=== PATIENT | male | born 1955 | race Caucasian/White ===

== ENCOUNTER 2017-10-01 07:28 | Inpatient (IN) ==
[2017-10-01] MEDS ORDERED: Ondansetron 4 MG/2 ML VIAL IVP ONE (07:36)
[2017-10-01] MEDS ORDERED: 0.9 % Sodium Chloride 1,000 ML IVC ONE ×3 (07:37→09:22)
--- NOTE | 2017-10-01 07:47 | Emergency Department Note ---
Disposition Clinical Impression: Abdominal pain Qualifiers: Abdominal location: epigastric Qualified Code(s): R10.13 - Epigastric pain DKA (diabetic ketoacidoses) Qualifiers: Diabetes mellitus type: type 1 Qualified Code(s): E10.10 - Disposition: Admitted As Inpatient Condition: Good Abdominal Pain HPI - General Chief Complaint: ED Abdominal Pain Stated Complaint: abd pain Time Seen by Provider: 10/01/17 07:31 Source: patient, EMS Mode of arrival: ambulatory Limitations: no limitations Nursing Notes Reviewed: Yes Vital Signs Reviewed: Yes - History of Present Illness HPI Narrative: Patient presents today for evaluation of nausea, vomiting and upper epigastric pain. Patient has very significant past medical history of hereditary chronic pancreatitis with 3 surgeries performed by [facility]. Patient's last surgery was in 1994. Does not follow regularly. Patient does not have an admission for pancreatitis or abdominal pain since this time. Patient had surgery for cyst as well as duct reconstruction. The patient has a history of insulin-dependent diabetes. The patient has not been eating for the last several days secondary to the nausea vomiting and abdominal pain. Since she has not been eating he has not been taking his insulin. The patient arrives with significantly dry mucous membranes. Continuing to make urine. Mild epigastric pain. Patient will undergo further evaluation for possible DKA first pancreatitis. Pain Scale: 7 - Related Data Home Medications Medication Instructions Recorded Confirmed Insulin Regular Human [HumuLIN R] 30 unit SQ 1-2XD PRN 10/01/17 10/01/17 OxyCODONE/APAP 5/325 [Percocet 1 tab PO Q6HR PRN 10/01/17 10/01/17 5/325 MG] Allergies Allergy/AdvReac Type Severity Reaction Status Date / Time No Known Allergies Allergy Verified 10/01/17 09:54 Review of Systems: CONSTITUTIONAL: Weakness and fatigue No weight loss, fever, chills HEENT: Eyes: No visual changes. Ears, Nose, Throat: No hearing loss, difficulty talking or unable to swallow. SKIN: No rash or itching. CARDIOVASCULAR: No chest pain, chest pressure or chest discomfort. No palpitations or edema. RESPIRATORY: No shortness of breath, cough or sputum. GASTROINTESTINAL: Nausea, vomiting, abdominal pain. No diarrhea or constipation or blood in stool or vomit. GENITOURINARY: No burning on urination or hematuria. NEUROLOGICAL: No headache, dizziness, syncope, paralysis, ataxia, numbness or tingling in the extremities. No change in bowel or bladder control. MUSCULOSKELETAL: No muscle pain, back pain, joint pain or stiffness. Abdominal Pain PMH - Past Medical History Medical history: Reports: diabetes, other Male Surgical History: Reports: other Psychiatric history: Reports: no psych history - Social History Smoking status: Current every day smoker Physical Exam General: Mild distress secondary to dehydration and abdominal pain Head: Normocephalic Atraumatic Eyes: PERRL, EOMI ENT: Dry mucous membranes Airway patent, no stridor Neck: supple, no meningismus Chest: Lungs clear to auscultation bilateral Cardiac: Regular rate and rhythm, no murmurs, rubs or gallops Abdomen: Significant midline scar as well as paucity of it abdominal adipose. soft, nontender, nondistended; no guarding, rebound, or tenderness to percussion Musculoskeletal: Calves symmetric, nontender, no palpable cord Skin: No rash, normal skin tone Neuro: Alert and Oriented to person, place, and time; No focal deficit - General Limitations: no limitations General appearance: alert, in no apparent distress Course - Reevaluation(s) Reevaluation #1: Amylase and lipase normal. Blood sugar greater than 1000. Acidotic. Fluids been given. Insulin drip started. Patient admitted to the hospitalist service. - Consultations Consultation #1: Discussed with hospitalist. Patient accepted for admission. Vital Signs Temperature 97.9 F 10/01/17 07:29 Pulse Rate 109 10/01/17 07:29 Respiratory Rate 18 10/01/17 07:29 Blood Pressure 135/94 10/01/17 07:29 O2 Sat by Pulse Oximetry 99 10/01/17 07:29 Temperature 97.9 F 10/01/17 18:44 Pulse Rate 105 10/01/17 18:44 Respiratory Rate 17 10/01/17 18:44 Blood Pressure 99/78 10/01/17 18:44 O2 Sat by Pulse Oximetry 96 10/01/17 18:44 Oxygen Delivery Oxygen Delivery Room Air Abdominal Pain - Medical Records Medical records reviewed: Yes I reviewed the patient's medical records. - Lab Data Lab results reviewed: Yes I reviewed the patient's lab results. Result diagrams: 10/01/17 07:56 10/01/17 16:14 Lab Results 10/01/17 10/01/17 10/01/17 Range/Units 07:35 07:36 07:56 WBC 6.7 (4.3-11.1) K/mcL RBC 4.56 (4.19-5.50) M/mcL Hgb 14.3 (12.9-16.9) g/dL Hct 43.3 (37.5-50.1) % MCV 95.0 (83.0-100.0) fL MCH 31.4 (28.0-33.3) pg MCHC 33.0 (31.6-35.5) g/dL RDW 12.5 (11.5-14.5) % Plt Count 239 (140-400) K/mcL MPV 12.5 H (9.4-12.4) fL Immature Gran % 0.2 (0-4) % Seg Neutrophils % 83.9 % Lymphocytes % 11.3 % Monocytes % 3.9 % Eosinophils % 0.2 % Basophils % 0.5 % Neutrophils # 5.6 (1.6-8.9) K/mcL Lymphocytes # 0.8 (0.6-4.6) K/mcL Monocytes # 0.3 (0.0-1.3) K/mcL Eosinophils # 0.0 (0.0-0.6) K/mcL Basophils # 0.0 (0.0-0.2) K/mcL VBG pH (7.32-7.42) pH Units VBG pCO2 (41-51) mmHg VBG pO2 (25-50) mmHg VBG HCO3 (21-27) mEq/L Sodium (136-145) mEq/L Potassium (3.5-5.1) mEq/L Chloride (98-107) mEq/L Carbon Dioxide (23-29) mEq/L BUN (8-23) mg/dL Creatinine (0.70-1.30) mg/dL Est GFR ( Amer) (> 60) Est GFR (Non-Af Amer) (> 60) BUN/Creatinine Ratio (6-26) Glucose (70-105) mg/dL POC Glucose > 600 H* > 600 H* (58-89) Est Mean Plasma Glucose mg/dl Hemoglobin A1c ( - 5.6) % Calculated Osmolality (280-300) Lactic Acid (0.5-2.2) mmol/L Calcium (8.6-10.3) mg/dL Phosphorus (2.7-4.5) mg/dL Magnesium (1.6-2.6) mg/dL Total Bilirubin (0.3-1.0) mg/dL Direct Bilirubin (0.0-0.2) mg/dL Indirect Bilirubin (0.0-1.2) mg/dL AST (13-39) Units/L ALT (7-52) Units/L Alkaline Phosphatase (34-104) Units/L Serum Total Protein (6.4-8.9) g/dL Albumin (3.5-5.7) g/dL Globulin (2.4-3.5) g/dL Albumin/Globulin Ratio (1.1-2.2) Amylase (29-103) Units/L Lipase (11-82) Units/L Beta-Hydroxybutyric Acd (0.02-0.27) mmol/L Urine Color (Yellow) Urine Clarity (Clear) Urine pH (5.0-8.0) pH Units Ur Specific [place] (1.010-1.025) Urine Protein (Neg-Trace) mg/dL Urine Glucose (UA) (Normal) mg/dL Urine Ketones (Negative) mg/dL Urine Blood (Negative) Urine Nitrite (Negative) Urine Bilirubin (Negative) Urine Urobilinogen (Normal) mg/dL Ur Leukocyte Esterase (Negative) Ur Culture Indicated? (NO) Specimen Rejected 10/01/17 10/01/17 10/01/17 Range/Units 07:56 07:56 07:56 WBC (4.3-11.1) K/mcL RBC (4.19-5.50) M/mcL Hgb (12.9-16.9) g/dL Hct (37.5-50.1) % MCV (83.0-100.0) fL MCH (28.0-33.3) pg MCHC (31.6-35.5) g/dL RDW (11.5-14.5) % Plt Count (140-400) K/mcL MPV (9.4-12.4) fL Immature Gran % (0-4) % Seg Neutrophils % % Lymphocytes % % Monocytes % % Eosinophils % % Basophils % % Neutrophils # (1.6-8.9) K/mcL Lymphocytes # (0.6-4.6) K/mcL Monocytes # (0.0-1.3) K/mcL Eosinophils # (0.0-0.6) K/mcL Basophils # (0.0-0.2) K/mcL VBG pH (7.32-7.42) pH Units VBG pCO2 (41-51) mmHg VBG pO2 (25-50) mmHg VBG HCO3 (21-27) mEq/L Sodium (136-145) mEq/L Potassium (3.5-5.1) mEq/L Chloride (98-107) mEq/L Carbon Dioxide (23-29) mEq/L BUN (8-23) mg/dL Creatinine (0.70-1.30) mg/dL Est GFR ( Amer) (> 60) Est GFR (Non-Af Amer) (> 60) BUN/Creatinine Ratio (6-26) Glucose (70-105) mg/dL POC Glucose (58-89) Est Mean Plasma Glucose mg/dl Hemoglobin A1c ( - 5.6) % Calculated Osmolality (280-300) Lactic Acid 1.9 (0.5-2.2) mmol/L Calcium (8.6-10.3) mg/dL Phosphorus (2.7-4.5) mg/dL Magnesium (1.6-2.6) mg/dL Total Bilirubin (0.3-1.0) mg/dL Direct Bilirubin (0.0-0.2) mg/dL Indirect Bilirubin (0.0-1.2) mg/dL AST (13-39) Units/L ALT (7-52) Units/L Alkaline Phosphatase (34-104) Units/L Serum Total Protein (6.4-8.9) g/dL Albumin (3.5-5.7) g/dL Globulin (2.4-3.5) g/dL Albumin/Globulin Ratio (1.1-2.2) Amylase (29-103) Units/L Lipase (11-82) Units/L Beta-Hydroxybutyric Acd > 2.00 H (0.02-0.27) mmol/L Urine Color (Yellow) Urine Clarity (Clear) Urine pH (5.0-8.0) pH Units Ur Specific [place] (1.010-1.025) Urine Protein (Neg-Trace) mg/dL Urine Glucose (UA) (Normal) mg/dL Urine Ketones (Negative) mg/dL Urine Blood (Negative) Urine Nitrite (Negative) Urine Bilirubin (Negative) Urine Urobilinogen (Normal) mg/dL Ur Leukocyte Esterase (Negative) Ur Culture Indicated? (NO) Specimen Rejected Contaminated 10/01/17 10/01/17 10/01/17 Range/Units 07:56 08:24 08:32 WBC (4.3-11.1) K/mcL RBC (4.19-5.50) M/mcL Hgb (12.9-16.9) g/dL Hct (37.5-50.1) % MCV (83.0-100.0) fL MCH (28.0-33.3) pg MCHC (31.6-35.5) g/dL RDW (11.5-14.5) % Plt Count (140-400) K/mcL MPV (9.4-12.4) fL Immature Gran % (0-4) % Seg Neutrophils % % Lymphocytes % % Monocytes % % Eosinophils % % Basophils % % Neutrophils # (1.6-8.9) K/mcL Lymphocytes # (0.6-4.6) K/mcL Monocytes # (0.0-1.3) K/mcL Eosinophils # (0.0-0.6) K/mcL Basophils # (0.0-0.2) K/mcL VBG pH 7.26 L (7.32-7.42) pH Units VBG pCO2 32 L (41-51) mmHg VBG pO2 62 H (25-50) mmHg VBG HCO3 15 L (21-27) mEq/L Sodium (136-145) mEq/L Potassium (3.5-5.1) mEq/L Chloride (98-107) mEq/L Carbon Dioxide (23-29) mEq/L BUN (8-23) mg/dL Creatinine (0.70-1.30) mg/dL Est GFR ( Amer) (> 60) Est GFR (Non-Af Amer) (> 60) BUN/Creatinine Ratio (6-26) Glucose (70-105) mg/dL POC Glucose (58-89) Est Mean Plasma Glucose 355 mg/dl Hemoglobin A1c 14.0 H ( - 5.6) % Calculated Osmolality (280-300) Lactic Acid (0.5-2.2) mmol/L Calcium (8.6-10.3) mg/dL Phosphorus (2.7-4.5) mg/dL Magnesium (1.6-2.6) mg/dL Total Bilirubin (0.3-1.0) mg/dL Direct Bilirubin (0.0-0.2) mg/dL Indirect Bilirubin (0.0-1.2) mg/dL AST (13-39) Units/L ALT (7-52) Units/L Alkaline Phosphatase (34-104) Units/L Serum Total Protein (6.4-8.9) g/dL Albumin (3.5-5.7) g/dL Globulin (2.4-3.5) g/dL Albumin/Globulin Ratio (1.1-2.2) Amylase (29-103) Units/L Lipase (11-82) Units/L Beta-Hydroxybutyric Acd (0.02-0.27) mmol/L Urine Color Yellow (Yellow) Urine Clarity Clear (Clear) Urine pH 5.5 (5.0-8.0) pH Units Ur Specific [place] > 1.030 H (1.010-1.025) Urine Protein Negative (Neg-Trace) mg/dL Urine Glucose (UA) >=1000 H (Normal) mg/dL Urine Ketones 40 H (Negative) mg/dL Urine Blood Negative (Negative) Urine Nitrite Negative (Negative) Urine Bilirubin Negative (Negative) Urine Urobilinogen Normal (Normal) mg/dL Ur Leukocyte Esterase Negative (Negative) Ur Culture Indicated? NO (NO) Specimen Rejected 10/01/17 10/01/17 10/01/17 Range/Units 09:09 10:47 10:48 WBC (4.3-11.1) K/mcL RBC (4.19-5.50) M/mcL Hgb (12.9-16.9) g/dL Hct (37.5-50.1) % MCV (83.0-100.0) fL MCH (28.0-33.3) pg MCHC (31.6-35.5) g/dL RDW (11.5-14.5) % Plt Count (140-400) K/mcL MPV (9.4-12.4) fL Immature Gran % (0-4) % Seg Neutrophils % % Lymphocytes % % Monocytes % % Eosinophils % % Basophils % % Neutrophils # (1.6-8.9) K/mcL Lymphocytes # (0.6-4.6) K/mcL Monocytes # (0.0-1.3) K/mcL Eosinophils # (0.0-0.6) K/mcL Basophils # (0.0-0.2) K/mcL VBG pH (7.32-7.42) pH Units VBG pCO2 (41-51) mmHg VBG pO2 (25-50) mmHg VBG HCO3 (21-27) mEq/L Sodium 129 L (136-145) mEq/L Potassium 6.6 H* (3.5-5.1) mEq/L Chloride 92 L (98-107) mEq/L Carbon Dioxide 15 L (23-29) mEq/L BUN 57 H (8-23) mg/dL Creatinine 1.56 H (0.70-1.30) mg/dL Est GFR ( Amer) 55 L (> 60) Est GFR (Non-Af Amer) 46 L (> 60) BUN/Creatinine Ratio 37 H (6-26) Glucose 1099 H* (70-105) mg/dL POC Glucose > 600 H* > 600 H* (58-89) Est Mean Plasma Glucose mg/dl Hemoglobin A1c ( - 5.6) % Calculated Osmolality 339 H (280-300) Lactic Acid (0.5-2.2) mmol/L Calcium 9.3 (8.6-10.3) mg/dL Phosphorus (2.7-4.5) mg/dL Magnesium (1.6-2.6) mg/dL Total Bilirubin 0.4 (0.3-1.0) mg/dL Direct Bilirubin 0.1 (0.0-0.2) mg/dL Indirect Bilirubin 0.3 (0.0-1.2) mg/dL AST 16 (13-39) Units/L ALT 22 (7-52) Units/L Alkaline Phosphatase 234 H (34-104) Units/L Serum Total Protein 7.1 (6.4-8.9) g/dL Albumin 4.2 (3.5-5.7) g/dL Globulin 2.9 (2.4-3.5) g/dL Albumin/Globulin Ratio 1.4 (1.1-2.2) Amylase < 10 L (29-103) Units/L Lipase 12 (11-82) Units/L Beta-Hydroxybutyric Acd (0.02-0.27) mmol/L Urine Color (Yellow) Urine Clarity (Clear) Urine pH (5.0-8.0) pH Units Ur Specific [place] (1.010-1.025) Urine Protein (Neg-Trace) mg/dL Urine Glucose (UA) (Normal) mg/dL Urine Ketones (Negative) mg/dL Urine Blood (Negative) Urine Nitrite (Negative) Urine Bilirubin (Negative) Urine Urobilinogen (Normal) mg/dL Ur Leukocyte Esterase (Negative) Ur Culture Indicated? (NO) Specimen Rejected 10/01/17 10/01/17 10/01/17 Range/Units 11:39 11:40 12:07 WBC (4.3-11.1) K/mcL RBC (4.19-5.50) M/mcL Hgb (12.9-16.9) g/dL Hct (37.5-50.1) % MCV (83.0-100.0) fL MCH (28.0-33.3) pg MCHC (31.6-35.5) g/dL RDW (11.5-14.5) % Plt Count (140-400) K/mcL MPV (9.4-12.4) fL Immature Gran % (0-4) % Seg Neutrophils % % Lymphocytes % % Monocytes % % Eosinophils % % Basophils % % Neutrophils # (1.6-8.9) K/mcL Lymphocytes # (0.6-4.6) K/mcL Monocytes # (0.0-1.3) K/mcL Eosinophils # (0.0-0.6) K/mcL Basophils # (0.0-0.2) K/mcL VBG pH (7.32-7.42) pH Units VBG pCO2 (41-51) mmHg VBG pO2 (25-50) mmHg VBG HCO3 (21-27) mEq/L Sodium 139 D (136-145) mEq/L Potassium 4.7 D (3.5-5.1) mEq/L Chloride 102 (98-107) mEq/L Carbon Dioxide 19 L (23-29) mEq/L BUN 55 H (8-23) mg/dL Creatinine 1.54 H (0.70-1.30) mg/dL Est GFR ( Amer) 56 L (> 60) Est GFR (Non-Af Amer) 46 L (> 60) BUN/Creatinine Ratio 36 H (6-26) Glucose 747 H* (70-105) mg/dL POC Glucose > 600 H* > 600 H* (58-89) Est Mean Plasma Glucose mg/dl Hemoglobin A1c ( - 5.6) % Calculated Osmolality 339 H (280-300) Lactic Acid (0.5-2.2) mmol/L Calcium 9.9 (8.6-10.3) mg/dL Phosphorus 4.7 H (2.7-4.5) mg/dL Magnesium 3.5 H (1.6-2.6) mg/dL Total Bilirubin (0.3-1.0) mg/dL Direct Bilirubin (0.0-0.2) mg/dL Indirect Bilirubin (0.0-1.2) mg/dL AST (13-39) Units/L ALT (7-52) Units/L Alkaline Phosphatase (34-104) Units/L Serum Total Protein (6.4-8.9) g/dL Albumin (3.5-5.7) g/dL Globulin (2.4-3.5) g/dL Albumin/Globulin Ratio (1.1-2.2) Amylase (29-103) Units/L Lipase (11-82) Units/L Beta-Hydroxybutyric Acd (0.02-0.27) mmol/L Urine Color (Yellow) Urine Clarity (Clear) Urine pH (5.0-8.0) pH Units Ur Specific [place] (1.010-1.025) Urine Protein (Neg-Trace) mg/dL Urine Glucose (UA) (Normal) mg/dL Urine Ketones (Negative) mg/dL Urine Blood (Negative) Urine Nitrite (Negative) Urine Bilirubin (Negative) Urine Urobilinogen (Normal) mg/dL Ur Leukocyte Esterase (Negative) Ur Culture Indicated? (NO) Specimen Rejected 10/01/17 10/01/17 Range/Units 12:42 12:43 WBC (4.3-11.1) K/mcL RBC (4.19-5.50) M/mcL Hgb (12.9-16.9) g/dL Hct (37.5-50.1) % MCV (83.0-100.0) fL MCH (28.0-33.3) pg MCHC (31.6-35.5) g/dL RDW (11.5-14.5) % Plt Count (140-400) K/mcL MPV (9.4-12.4) fL Immature Gran % (0-4) % Seg Neutrophils % % Lymphocytes % % Monocytes % % Eosinophils % % Basophils % % Neutrophils # (1.6-8.9) K/mcL Lymphocytes # (0.6-4.6) K/mcL Monocytes # (0.0-1.3) K/mcL Eosinophils # (0.0-0.6) K/mcL Basophils # (0.0-0.2) K/mcL VBG pH (7.32-7.42) pH Units VBG pCO2 (41-51) mmHg VBG pO2 (25-50) mmHg VBG HCO3 (21-27) mEq/L Sodium (136-145) mEq/L Potassium (3.5-5.1) mEq/L Chloride (98-107) mEq/L Carbon Dioxide (23-29) mEq/L BUN (8-23) mg/dL Creatinine (0.70-1.30) mg/dL Est GFR ( Amer) (> 60) Est GFR (Non-Af Amer) (> 60) BUN/Creatinine Ratio (6-26) Glucose (70-105) mg/dL POC Glucose > 600 H* > 600 H* (58-89) Est Mean Plasma Glucose mg/dl Hemoglobin A1c ( - 5.6) % Calculated Osmolality (280-300) Lactic Acid (0.5-2.2) mmol/L Calcium (8.6-10.3) mg/dL Phosphorus (2.7-4.5) mg/dL Magnesium (1.6-2.6) mg/dL Total Bilirubin (0.3-1.0) mg/dL Direct Bilirubin (0.0-0.2) mg/dL Indirect Bilirubin (0.0-1.2) mg/dL AST (13-39) Units/L ALT (7-52) Units/L Alkaline Phosphatase (34-104) Units/L Serum Total Protein (6.4-8.9) g/dL Albumin (3.5-5.7) g/dL Globulin (2.4-3.5) g/dL Albumin/Globulin Ratio (1.1-2.2) Amylase (29-103) Units/L Lipase (11-82) Units/L Beta-Hydroxybutyric Acd (0.02-0.27) mmol/L Urine Color (Yellow) Urine Clarity (Clear) Urine pH (5.0-8.0) pH Units Ur Specific [place] (1.010-1.025) Urine Protein (Neg-Trace) mg/dL Urine Glucose (UA) (Normal) mg/dL Urine Ketones (Negative) mg/dL Urine Blood (Negative) Urine Nitrite (Negative) Urine Bilirubin (Negative) Urine Urobilinogen (Normal) mg/dL Ur Leukocyte Esterase (Negative) Ur Culture Indicated? (NO) Specimen Rejected - Radiology Data Radiology results reviewed: Yes I reviewed the patient's radiology results. - EKG Data EKG attestation: Yes I reviewed and interpreted this EKG. EKG results narrative: EKG shows sinus tachycardia at a rate of 105. VT 144. QRS 112. QTC 413. Patient has no significant ST elevations or depressions. Attestation Statement - Attestation Attestation: I examined this patient and my medical decision-making was reviewed with the Resident Physician. I agree with the documented findings, disposition and treatment plan as described except to the extent set forth below. Patient presents to the ED with a chief complaint of not feeling well. He states that he went to work today and felt the worst is ever found his life. He has history of chronic pancreatitis. He has had prior surgeries for pseudocysts. He states his blood sugar was high. He has not taken his insulin because he has not been able to eat for the past few days. On examination he is dehydrated. Epigastric tenderness. Dry mucous membranes. Plan. Labs IV hydration. DKA workup. Likely admission. 40 minutes of critical care exclusive of separately billable procedures.
[2017-10-01] MEDS ORDERED: *HR* FentaNYL (PF) 100 MCG/2 ML VIAL IVP ONE (08:10)
[2017-10-01] MEDS ORDERED: *HR* OxyCODONE Immed Rel 5 MG TABLET PO ONE (08:11)
[2017-10-01 08:24] LABS: Basophils % 0.5 %; Eosinophils % 0.2 %; Hematocrit 43.3 % (37.5-50.1); Hemoglobin 14.3 g/dL (12.9-16.9); Immature Granulocytes % 0.2 % (0-4); Lymphocytes # 0.8 K/mcL (0.6-4.6); Lymphocytes % 11.3 %; Mean Corpuscular Hemoglobin 31.4 pg (28.0-33.3); Mean Platelet Volume 12.5 fL (9.4-12.4); Monocytes # 0.3 K/mcL (0.0-1.3); Monocytes % 3.9 %; Neutrophils # 5.6 K/mcL (1.6-8.9); Platelet Count 239 K/mcL (140-400); Red Blood Count 4.56 M/mcL (4.19-5.50); Red Cell Distribution Width 12.5 % (11.5-14.5); Segmented Neutrophils % 83.9 %
[2017-10-01 08:36] LABS: VBG HCO3 15 mEq/L (21-27); VBG PCO2 32 mmHg (41-51); VBG PH 7.26 pH Units (7.32-7.42); VBG PO2 62 mmHg (25-50)
[2017-10-01 08:40] LABS: Bilirubin,Urine Negative (Negative); Blood,Urine Negative (Negative); Clarity,Urine Clear (Clear); Color,Urine Yellow (Yellow); Glucose,Urine (UA) >=1000 mg/dL (Normal); Ketones,Urine 40 mg/dL (Negative); Leukocyte Esterase,Urine Negative (Negative); Nitrite,Urine Negative (Negative); PH,Urine 5.5 pH Units (5.0-8.0); Protein,Urine Negative (Neg-Trace); Specific Gravity,Urine > 1.030 (1.010-1.025); Urobilinogen,Urine Normal (Normal)
[2017-10-01 09:53] LABS: Alanine Aminotransferase 22 Units/L (7-52); Albumin 4.2 g/dL (3.5-5.7); Albumin/Globulin Ratio 1.4 (1.1-2.2); Alkaline Phosphatase 234 Units/L (34-104); Amylase < 10 Units/L (29-103); Aspartate Amino Transferase 16 Units/L (13-39); BUN/Creatinine Ratio 37 (6-26); Bilirubin,Direct 0.1 mg/dL (0.0-0.2); Bilirubin,Indirect 0.3 mg/dL (0.0-1.2); Bilirubin,Total 0.4 mg/dL (0.3-1.0); Blood Urea Nitrogen 57 mg/dL (8-23); Calcium 9.3 mg/dL (8.6-10.3); Carbon Dioxide 15 mEq/L (23-29); Chloride 92 mEq/L (98-107); Globulin 2.9 g/dL (2.4-3.5); Sodium 129 mEq/L (136-145); Total Protein 7.1 g/dL (6.4-8.9); eGFR For African Americans 55 (> 60); eGFR For Non-African Americans 46 (> 60)
[2017-10-01] MEDS ORDERED: *HR* Dextrose 50 % in Water (Syg) 50 ML SYRINGE IVP PRN ×3 (09:54→18:10)
[2017-10-01] MEDS ORDERED: Insulin Human Regular 100 UNIT in 0.9 % Sodium Chloride 100 ML IVC SCH (10:00)
[2017-10-01] MEDS ORDERED: Insulin Regular, Human 100 UNIT/ML IV PRN (10:29)
[2017-10-01] MEDS ORDERED: Naloxone 0.4 MG/ML INJ IVP PRN (10:43)
[2017-10-01] MEDS ORDERED: Acetaminophen 325 MG TABLET PO PRN (10:43)
[2017-10-01] MEDS ORDERED: 0.9 % Sodium Chloride 1,000 ML IVC SCH (10:45)
[2017-10-01 10:54] LABS: Glucose 1099 mg/dL (70-105); Lipase 12 Units/L (11-82); Osmolality,Calculated 339 (280-300)
[2017-10-01 11:02] LABS: Potassium 6.6 mEq/L (3.5-5.1)
[2017-10-01] MEDS ORDERED: *HR* FentaNYL (PF) 100 MCG/2 ML VIAL IVP PRN (12:23)
[2017-10-01] MEDS ORDERED: *HR* FentaNYL (PF) 100 MCG/2 ML VIAL ONE (12:28)
--- NOTE | 2017-10-01 12:28 | Internal Med History&Physical ---
Date of Encounter: 10/01/17 Time of Encounter: 10:45 Assessment and Plan (1) DKA (diabetic ketoacidoses) Current visit: Yes Status: Acute Will admit the pt into Tele Pt is in severe DKA.. High risk pt.. Need very close monitoring in step down unit Reviewed his labs - AG-22, Hco3-15, severe hyperglycemia with BS @ 1099 started him on DKA protocol - Insulin gtt IV fluids - already given 3 lit NS bolus in the ER Next 4th bag run at 500cc/hr x 1 After that continue maintainence IVF NS @ 150cc/hr adjust IV fluids according his electrolytes check frequent electrolytes Q4hr Strict NPO for now Cont symptomatic and supportive with IV analgesics and IV Zofran Qualifiers: Diabetes mellitus type: type 1 Qualified Code(s): E10.10 - Type 1 diabetes mellitus with ketoacidosis without coma (2) Intractable nausea and vomiting Current visit: Yes Status: Acute Qualifiers: Vomiting type: unspecified Qualified Code(s): R11.2 - Nausea with vomiting , unspecified (3) Abdominal pain Current visit: Yes Status: Acute Qualifiers: Abdominal location: epigastric Qualified Code(s): R10.13 - Epigastric pain (4) Diabetes mellitus Current visit: Yes Status: Acute uncontrolled DM1 HbA1C 14 Counseled about compliance with Insulin educated him about sick day rule will consult content coordinator for further education about diet Qualifiers: Diabetes mellitus type: type 1 Diabetes mellitus complication status: with ketoacidosis Diabetes mellitus complication detail: without coma Qualified Code(s): E10.10 - Type 1 diabetes mellitus with ketoacidosis without coma (5) Chronic pancreatitis Current visit: Yes Status: Acute recurrent and chronic pancreatitis normal lipase if his abd pain persists even after DKA improves, will consider a CT of Abd Did not notice any pancreatic enzyme supplements in his home med list will check with PCP Qualifiers: Pancreatitis type: idiopathic Qualified Code(s): K86.1 - Other chronic pancreatitis (6) Tobacco dependence Current visit: Yes Status: Acute counseled to quit smoking tobacco as well as Marijuana on nicotine patch here Internal Medicine - H&P: HPI Chief complaint: Severe abdominal pain .. N / V Admitted From: Emergency Dept Plans for Post Hospital Care: Home History of present illness: Mr. Cardoza is a 62 year old male with known past medical history of chronic pancreatitis, type I diabetes on insulin, HTN , chronic tobacco dependence and marijuana usage occasionally, patient presents to ER for evaluation of nausea, vomiting and upper epigastric pain. Patient has very significant past medical history of hereditary chronic pancreatitis with 3 surgeries performed by [facility]. Patient's last surgery was in 1994. Does not follow regularly. Patient does not have an admission for pancreatitis or abdominal pain since this time. Patient had surgery for cyst as well as duct reconstruction. He has not been eating for the last several days secondary to the nausea vomiting and abdominal pain. Since she has not been eating he has not been taking his insulin almost for a week. Denied any CP / SOB. Denied any dysuria / Constipation / Diarrhea. Past Med Surg Social Fam HX - Past Medical History Medical history: diabetes, other (Chronic pancreatitis) Psychiatric history: no psych history - Social History Smoking Status: Current every day smoker Drug use: marijuana - Family History Mother Hx Family GI Disorders: Yes (Pancreatic cancer) Hx Family Endocrine Disorder: Yes (Diabetes type II) Internal Medicine - H&P: Meds Insulin Regular Human [HumuLIN R] 30 unit SQ 1-2XD PRN 10/01/17 [History] OxyCODONE/APAP 5/325 [Percocet 5/325 MG] 1 tab PO Q6HR PRN 10/01/17 [History] 3 Allergy/AdvReac Type Severity Reaction Status Date / Time No Known Allergies Allergy Verified 10/01/17 09:54 All Systems PM: A 10-system review of systems was performed and is negative for pertinent findings except as documented above in the HPI. Review of systems: All the systems are reviewed everything is benign except the systems and symptoms I mentioned in the history of present illness - Constitutional Vitals: Temp Pulse Resp BP Pulse Ox 97.9 F 98 16 108/81 98 10/01/17 07:29 10/01/17 11:06 10/01/17 11:06 10/01/17 11:06 10/01/17 11:06 General appearance: Present: A&O X 3 - Head Head exam: Present: atraumatic, normal inspection - Neck Neck exam general surgery: Present: supple - Respiratory Respiratory exam: Present: decreased breath sounds. Absent: rales, respiratory distress, rhonchi, wheezes - Cardiovascular Cardiovascular exam: Present: +S1, +S2, tachycardia. Absent: systolic murmur - GI/Abdominal GI/Abdominal exam: Present: normal bowel sounds, soft, tenderness (eleazar umbilical and epigastric region). Absent: distended, rebound, rigid - Extremities Exam Extremities exam: Absent: calf tenderness, pedal edema, tenderness - Back Exam Back exam: Absent: CVA tenderness (L), CVA tenderness (R) - Neurological Exam Neurological exam: Present: alert, oriented X3 - Psychiatric Psychiatric exam: Present: depressed - Skin Skin exam: Absent: rash Internal Med - H&P Results - Labs CBC & Chem 7: 10/01/17 07:56 10/01/17 09:09 Labs: Short CBC 10/01/17 Range/Units 07:56 WBC 6.7 (4.3-11.1) K/mcL Hgb 14.3 (12.9-16.9) g/dL Hct 43.3 (37.5-50.1) % Plt Count 239 (140-400) K/mcL Neutrophils # 5.6 (1.6-8.9) K/mcL BMP 10/01/17 09:09 Sodium 129 L Potassium 6.6 H* Chloride 92 L Carbon Dioxide 15 L BUN 57 H Creatinine 1.56 H Glucose 1099 H* Calcium 9.3 Liver Function 10/01/17 Range/Units 09:09 Total Bilirubin 0.4 (0.3-1.0) mg/dL Direct Bilirubin 0.1 (0.0-0.2) mg/dL AST 16 (13-39) Units/L ALT 22 (7-52) Units/L Alkaline Phosphatase 234 H (34-104) Units/L Albumin 4.2 (3.5-5.7) g/dL Urine 10/01/17 Range/Units 08:24 Urine Color Yellow (Yellow) Urine Clarity Clear (Clear) Urine pH 5.5 (5.0-8.0) pH Units Ur Specific [place] > 1.030 H (1.010-1.025) Urine Protein Negative (Neg-Trace) mg/dL Urine Glucose (UA) >=1000 H (Normal) mg/dL - ABG Interpretation ABG results: 10/01/17 08:32 VBG pH 7.26 L VBG pCO2 32 L VBG pO2 62 H VBG HCO3 15 L
[2017-10-01 13:09] LABS: Calcium 9.9 mg/dL (8.6-10.3); Magnesium 3.5 mg/dL (1.6-2.6); Phosphorous 4.7 mg/dL (2.7-4.5); Potassium 4.7 mEq/L (3.5-5.1)
[2017-10-01] MEDS ORDERED: Ondansetron 4 MG/2 ML VIAL IVP PRN (15:03)
[2017-10-01] MEDS ORDERED: *HR* Promethazine 25 MG/ML VIAL IVP PRN (15:04)
[2017-10-01] MEDS: 0.45 % Sodium Chloride w/KCl 20 MEQ/1,000 ML MLS IVC SCH ×3 (15:26→22:32)
[2017-10-01] MEDS ORDERED: Ketorolac 15 MG/ML VIAL IVP PRN (15:41)
[2017-10-01] MEDS: *HR* HYDROcodone/Acet 5/325 mg TABLET PO PRN ×2 (15:47→23:32)
--- NOTE | 2017-10-01 16:08 | Electrocardiograph Report ---
[employer] [employer] Test Date: 2017-10-01 Pat Name: Tyshawn Cardoza Department: 103 Room: 2N02 Gender: M Pipeline Operator: YOVANNY : 1955 Requested By: Kim See Order Number: [id number] Reading MD: Arvind Mitchell DO Measurements Intervals [place] Rate: 105 P: 76 MS: 144 QRS: -75 QRSD: 112 T: 71 QT: 352 QTc: 413 Interpretive Statements SINUS TACHYCARDIA INDETERMINATE AXIS PATTERN CONSISTENT WITH PULMONARY DISEASE INCOMPLETE RIGHT BUNDLE BRANCH BLOCK [90+ ms QRS DURATION, TERMINAL R IN V1/V2, 40+ ms S IN I/aVL/V4/V5/V6] POSSIBLE INFERIOR MYOCARDIAL INFARCTION [30 ms Q WAVE IN II/aVF], PROBABLY OLD Electronically Signed On 10-01-2017 16:07:06 EST by Arvind Mitchell DO
[2017-10-01] MEDS: Nicotine 21 MG PATCH.TD24 TD SCH (16:52)
[2017-10-01] MEDS: *HR* Heparin 5,000 UNIT/ML VIAL SQ SCH (16:53)
[2017-10-01 17:20] LABS: BUN/Creatinine Ratio 38 (6-26); Blood Urea Nitrogen 50 mg/dL (8-23); Calcium 10.5 mg/dL (8.6-10.3); Carbon Dioxide 29 mEq/L (23-29); Chloride 108 mEq/L (98-107); Glucose 310 mg/dL (70-105); Osmolality,Calculated 325 (280-300); Potassium 4.1 mEq/L (3.5-5.1); Sodium 145 mEq/L (136-145); eGFR For African Americans > 60 (> 60); eGFR For Non-African Americans 55 (> 60)
--- NOTE | 2017-10-01 18:09 | Event Note ---
Date of Encounter: 10/01/17 Time of Encounter: 18:08 Pt's anion gap improved and his BS came down to 250's. Pt also feeling lot better now. So will start him on clear liquid diet . Also will give him Levemir + ISS Q4hr medium scale will cont IV fluids as well as frequent labs till morning
[2017-10-01] MEDS ORDERED: Dextrose Gel 15 GM/37.5 ML TUBE PO PRN ×2 (18:10)
[2017-10-01] MEDS ORDERED: D5% in Water 1,000 ML IVC PRN (18:10)
[2017-10-01] MEDS: Insulin DETEMIR 100 UNIT/ML X5UNITS SQ SCH ×2 (19:55→22:31)
[2017-10-01 20:19] LABS: BUN/Creatinine Ratio 39 (6-26); Blood Urea Nitrogen 46 mg/dL (8-23); Calcium 10.1 mg/dL (8.6-10.3); Carbon Dioxide 27 mEq/L (23-29); Chloride 110 mEq/L (98-107); Glucose 107 mg/dL (70-105); Osmolality,Calculated 312 (280-300); Phosphorous 2.8 mg/dL (2.7-4.5); Potassium 3.9 mEq/L (3.5-5.1); Sodium 145 mEq/L (136-145); eGFR For African Americans > 60 (> 60); eGFR For Non-African Americans > 60 (> 60)
[2017-10-01] MEDS: Insulin LISPRO 300 UNITS/3 ML VIAL SQ SCH (21:00)
[2017-10-02] MEDS: Insulin LISPRO 300 UNITS/3 ML VIAL SQ SCH ×6 (00:13→20:21)
[2017-10-02 00:23] LABS: BUN/Creatinine Ratio 40 (6-26); Blood Urea Nitrogen 49 mg/dL (8-23); Calcium 9.5 mg/dL (8.6-10.3); Carbon Dioxide 27 mEq/L (23-29); Chloride 104 mEq/L (98-107); Glucose 352 mg/dL (70-105); Osmolality,Calculated 319 (280-300); Potassium 4.6 mEq/L (3.5-5.1); Sodium 141 mEq/L (136-145); eGFR For African Americans > 60 (> 60); eGFR For Non-African Americans > 60 (> 60)
[2017-10-02] MEDS: *HR* Heparin 5,000 UNIT/ML VIAL SQ SCH ×2 (06:23→19:17)
[2017-10-02 06:40] LABS: Basophils # 0.1 K/mcL (0.0-0.2); Basophils % 0.4 %; Eosinophils # 0.1 K/mcL (0.0-0.6); Eosinophils % 1.1 %; Hematocrit 38.7 % (37.5-50.1); Hemoglobin 13.5 g/dL (12.9-16.9); Immature Granulocytes % 0.3 % (0-4); Lymphocytes # 2.5 K/mcL (0.6-4.6); Lymphocytes % 19.8 %; Mean Corpuscular HGB Conc 34.9 g/dL (31.6-35.5); Mean Corpuscular Hemoglobin 31.6 pg (28.0-33.3); Mean Corpuscular Volume 90.6 fL (83.0-100.0); Mean Platelet Volume 12.1 fL (9.4-12.4); Monocytes # 0.7 K/mcL (0.0-1.3); Monocytes % 5.4 %; Platelet Count 194 K/mcL (140-400); Red Blood Count 4.27 M/mcL (4.19-5.50); Red Cell Distribution Width 12.9 % (11.5-14.5)
[2017-10-02 07:06] LABS: BUN/Creatinine Ratio 44 (6-26); Blood Urea Nitrogen 48 mg/dL (8-23); Calcium 9.5 mg/dL (8.6-10.3); Carbon Dioxide 29 mEq/L (23-29); Chloride 105 mEq/L (98-107); Glucose 234 mg/dL (70-105); Magnesium 2.6 mg/dL (1.6-2.6); Osmolality,Calculated 314 (280-300); Phosphorous 2.8 mg/dL (2.7-4.5); Sodium 142 mEq/L (136-145); eGFR For African Americans > 60 (> 60); eGFR For Non-African Americans > 60 (> 60)
[2017-10-02 07:11] LABS: Neutrophils # 9.1 K/mcL (1.6-8.9)
--- NOTE | 2017-10-02 07:22 | Internal Med Progress Note ---
<ThanhTyshawn - Last Filed: 10/02/17 16:05> Date of Encounter: 10/02/17 - Subjective Interval history: Other than history of present illness a 10 point review of systems is negative - Constitutional Vitals: Temp Pulse Resp BP Pulse Ox 98.1 F 75 15 129/90 100 10/02/17 12:00 10/02/17 12:00 10/02/17 12:00 10/02/17 12:00 10/02/17 12:00 Internal Medicine: Result - Labs CBC & Chem 7: 10/02/17 05:40 10/02/17 08:21 Labs: Short CBC 10/02/17 Range/Units 05:40 WBC 12.4 H D (4.3-11.1) K/mcL Hgb 13.5 (12.9-16.9) g/dL Hct 38.7 (37.5-50.1) % Plt Count 194 (140-400) K/mcL Neutrophils # 9.1 H (1.6-8.9) K/mcL BMP 10/01/17 10/01/17 10/01/17 16:14 19:34 23:57 Sodium 145 145 141 Potassium 4.1 3.9 4.6 Chloride 108 H 110 H 104 Carbon Dioxide 29 27 27 BUN 50 H 46 H 49 H Creatinine 1.32 H 1.17 1.21 Glucose 310 H 107 H 352 H Calcium 10.5 H 10.1 9.5 10/02/17 10/02/17 05:40 08:21 Sodium 142 140 Potassium 4.0 4.4 Chloride 105 104 Carbon Dioxide 29 29 BUN 48 H 43 H Creatinine 1.10 0.96 Glucose 234 H 253 H Calcium 9.5 9.9 Consult Discharge Plan - Plan Referrals: Hemant Salguero MD [Primary Care Provider] - 10/08/17 9:45 am - Attending Attestation I personally interviewed and examined this patient. I agree with the findings, assessment, and plan of Dr. Espinoza, internal medicine internal communications manager patient's main issue appears to be access to his medications. bulb farmworker is involved. His DKA is resolved. We will continue to monitor. Advance to full diet. Anticipate discharge later today. <Facundo Espinoza - Last Filed: 10/02/17 17:16> Date of Encounter: 10/02/17 Time of Encounter: 08:32 - Assessment and plan (1) DKA (diabetic ketoacidoses) Current Visit: Yes Status: Acute Assessment and plan: Patient presented in severe DKA; Uncontrolled T1DM AG-22, Hco3-15, severe hyperglycemia with BS 1099 Patient was started on DKA protocol - Insulin drip IVF discontinued today Last glucose was 234 Plan: -Clear liquid diet -Humalog SQ Q4H -D5% at 100 mls/h PRN -Zofran 4mg IV Q6 PRN -Phenergan 12.5 mg Q6 PRN Qualifiers: Diabetes mellitus type: type 1 Qualified Code(s): E10.10 - Type 1 diabetes mellitus with ketoacidosis without coma (2) Diabetes mellitus Current Visit: Yes Status: Acute Assessment and plan: Uncontrolled DM1; HbA1C 14 -Counseled about compliance with Insulin -Consult snubber for further education about diet Plan: -Humalog SQ Q4H -Glucose measurement Q4H Qualifiers: Diabetes mellitus type: type 1 Diabetes mellitus complication status: with ketoacidosis Diabetes mellitus complication detail: without coma Qualified Code(s): E10.10 - Type 1 diabetes mellitus with ketoacidosis without coma (3) Chronic pancreatitis Current Visit: Yes Status: Acute Assessment and plan: -Recurrent and chronic pancreatitis -Normal lipase -If his abd pain persists even after DKA improves, will consider a CT of Abdomen Qualifiers: Pancreatitis type: idiopathic Qualified Code(s): K86.1 - Other chronic pancreatitis (4) Tobacco dependence Current Visit: Yes Status: Acute Assessment and plan: -Counseled to quit smoking tobacco as well as Marijuana -Nicotine patch - Subjective Interval history: Mr. Cardoza is a 62 year old male with known past medical history of chronic pancreatitis, T1DM on insulin, HTN , chronic tobacco dependence and marijuana usage occasionally, patient presents to ER for evaluation of n/v and upper epigastric pain. Patient has significant PMH of hereditary chronic pancreatitis with 3 surgeries performed by [facility]. Last surgery was in 1994. Does not follow regularly. Patient does not have an admission for pancreatitis or abdominal pain since this time. Patient had surgery for cyst as well as duct reconstruction. He has not been eating for the last several days secondary to the n/v and abdominal pain. Since she has not been eating, had not been taking his insulin almost for a week. Denied any CP / SOB. Denied any dysuria / Constipation / Diarrhea. Patient was tachycardic on admission at 109 bpm. All other vitals were within normal limits. Glucose was found to be elevated at 1099. DKA protocol was started; insulin drip initiated. Pt's anion gap improved; BS came down to 250' s. Patient was seen and examined at [facility] this morning. - Constitutional Vitals: Temp Pulse Resp BP Pulse Ox 97.8 F 76 18 122/88 100 10/02/17 07:13 10/02/17 07:13 10/02/17 07:13 10/02/17 07:13 10/02/17 07:13 General appearance: Present: A&O X 3 - Head Head exam: Present: atraumatic, normocephalic - Eye Eye exam: Present: PERRL, conjuntiva pink, sclera anicteric Pupils: Present: PERRL - Neck Neck exam general surgery: Present: supple, trachea midline. Absent: lymphadenopathy - Respiratory Respiratory exam: Present: CTAB. Absent: accessory muscle use, rales, rhonchi, wheezes - Cardiovascular Cardiovascular exam: Present: RRR, +S1, +S2. Absent: diastolic murmur, gallop, rubs, systolic murmur - GI/Abdominal GI/Abdominal exam: Present: normal bowel sounds, soft, no peritoneal signs. Absent: distended, tenderness - Extremities Exam Extremities exam: Present: warm, radial pulses palpable and symmetrical. Absent : calf tenderness, cyanotic, pedal edema - Skin Skin exam: Present: dry, intact Internal Medicine: Result - Labs CBC & Chem 7: 10/02/17 05:40 10/02/17 08:21 Labs: Short CBC 10/02/17 Range/Units 05:40 WBC 12.4 H D (4.3-11.1) K/mcL Hgb 13.5 (12.9-16.9) g/dL Hct 38.7 (37.5-50.1) % Plt Count 194 (140-400) K/mcL Neutrophils # 9.1 H (1.6-8.9) K/mcL BMP 10/01/17 10/01/17 10/01/17 16:14 19:34 23:57 Sodium 145 145 141 Potassium 4.1 3.9 4.6 Chloride 108 H 110 H 104 Carbon Dioxide 29 27 27 BUN 50 H 46 H 49 H Creatinine 1.32 H 1.17 1.21 Glucose 310 H 107 H 352 H Calcium 10.5 H 10.1 9.5 10/02/17 05:40 Sodium 142 Potassium 4.0 Chloride 105 Carbon Dioxide 29 BUN 48 H Creatinine 1.10 Glucose 234 H Calcium 9.5
[2017-10-02] MEDS: 0.45 % Sodium Chloride w/KCl 20 MEQ/1,000 ML MLS IVC SCH ×2 (07:32→07:53)
[2017-10-02] MEDS: Nicotine 21 MG PATCH.TD24 TD SCH (07:51)
[2017-10-02 09:21] LABS: BUN/Creatinine Ratio 45 (6-26); Blood Urea Nitrogen 43 mg/dL (8-23); Calcium 9.9 mg/dL (8.6-10.3); Carbon Dioxide 29 mEq/L (23-29); Chloride 104 mEq/L (98-107); Glucose 253 mg/dL (70-105); Osmolality,Calculated 309 (280-300); Potassium 4.4 mEq/L (3.5-5.1); Sodium 140 mEq/L (136-145); eGFR For African Americans > 60 (> 60); eGFR For Non-African Americans > 60 (> 60)
[2017-10-02] MEDS: Insulin DETEMIR 100 UNIT/ML X5UNITS SQ SCH ×2 (10:39→21:23)
[2017-10-02 15:17] LABS: Magnesium 2.2 mg/dL (1.6-2.6); Phosphorous 1.7 mg/dL (2.7-4.5)
--- NOTE | 2017-10-02 17:11 | Discharge Summary ---
<Facundo Espinoza - Last Filed: 10/02/17 17:11> Date of Encounter: 10/02/17 Time of Encounter: 08:00 - Discharge Diagnosis (1) DKA (diabetic ketoacidoses) Priority: Primary Status: Acute Qualifiers: Diabetes mellitus type: type 1 Qualified Code(s): E10.10 - Type 1 diabetes mellitus with ketoacidosis without coma (2) Diabetes mellitus Priority: Secondary Status: Acute Qualifiers: Diabetes mellitus type: type 1 Diabetes mellitus complication status: with ketoacidosis Diabetes mellitus complication detail: without coma Qualified Code(s): E10.10 - Type 1 diabetes mellitus with ketoacidosis without coma (3) Chronic pancreatitis Priority: Secondary Status: Acute Qualifiers: Pancreatitis type: idiopathic Qualified Code(s): K86.1 - Other chronic pancreatitis (4) Tobacco dependence Priority: Secondary Status: Acute Hospital course: Mr. Cardoza is a 62 year old male with known past medical history of chronic pancreatitis, T1DM on insulin, HTN , chronic tobacco dependence and marijuana usage occasionally, patient presents to ER for evaluation of n/v and upper epigastric pain. Patient has significant PMH of hereditary chronic pancreatitis with 3 surgeries performed by [facility]. Last surgery was in 1994. Does not follow regularly. Patient does not have an admission for pancreatitis or abdominal pain since this time. Patient had surgery for cyst as well as duct reconstruction. He has not been eating for the last several days secondary to the n/v and abdominal pain. Since she has not been eating, had not been taking his insulin almost for a week. Denied any CP / SOB. Denied any dysuria / Constipation / Diarrhea. Patient was tachycardic on admission at 109 bpm. All other vitals were within normal limits. Glucose was found to be elevated at 1099. DKA protocol was started; insulin drip initiated. Pt's anion gap improved; BS came down to 250' s. Patient was seen and examined at [facility] this morning. Feeling well this morning. Admits that the reason his blood sugar vladimir was because he has not been eating properly and has not been taking his insulin as he should. He also states that he has no insurance, and has not been able to afford his correct insulin regimen. He has therefore been taking only over the counter insulin. Patient was seen by social work today; will try and get him set up with medicaid. Patient will be discharged on Novolin 70/30, 15 units. Patient will take 10 units am and 5 units PM. - Time Spent with Patient Total time spent providing and/or coordinating discharge services: Greater than 30 minutes (42 minutes) - Discharge Medications Home Medications: Insulin Regular Human [HumuLIN R] 30 unit SQ 1-2XD PRN 10/01/17 [History] OxyCODONE/APAP 5/325 [Percocet 5/325 MG] 1 tab PO Q6HR PRN 10/01/17 [History] Allergies/Adverse Reactions: 3 Allergy/AdvReac Type Severity Reaction Status Date / Time No Known Allergies Allergy Verified 10/01/17 09:54 Date of admission: 10/01/17 13:52 Primary care physician: Hemant Salguero MD Consults: 10/01/17 15:06 Consult to Nutrition [CONS] Routine Comment: Consulting Provider: NUTRITION Reason for Dietary Consult: Other Other:: unplanned wt. loss 10/01/17 17:37 Consult to Driver/Sales Workers [CONS] Routine Reason for SW Consult: financial concerns for hospital bill, and medications at home Discharging clinician: Facundo Espinoza Anticipated date of discharge: 10/02/17 - Constitutional Vitals: Temp Pulse Resp BP Pulse Ox 98.1 F 90 16 118/72 97 10/02/17 16:38 10/02/17 16:38 10/02/17 16:38 10/02/17 16:38 10/02/17 16:38 General appearance: Present: A&O X 3 - Head Head exam: Present: atraumatic, normocephalic - Eye Eye exam: Present: PERRL, conjuntiva pink, sclera anicteric Pupils: Present: PERRL - Neck Neck exam general surgery: Present: supple, trachea midline. Absent: lymphadenopathy - Respiratory Respiratory exam: Present: CTAB. Absent: accessory muscle use, rales, rhonchi, wheezes - Cardiovascular Cardiovascular exam: Present: RRR, +S1, +S2. Absent: diastolic murmur, gallop, rubs, systolic murmur - GI/Abdominal GI/Abdominal exam: Present: normal bowel sounds, soft, no peritoneal signs. Absent: distended, tenderness - Extremities Exam Extremities exam: Present: warm, radial pulses palpable and symmetrical. Absent : calf tenderness, cyanotic, pedal edema - Neurological Exam Neurological exam: Present: CN II-XII intact, oriented X3, no focal deficits. Absent: pronater drift, facial droop, speech deficit - Skin Skin exam: Present: dry, intact - Patient Status Disposition: Home, Self-Care Condition: Good Overall status at discharge: patient is progressing back to baseline - Discharge Instructions Follow Up With: Hemant Salguero MD [Primary Care Provider] - 10/08/17 9:45 am - Diet and Activity Activity: increase activity as tolerated Diet: advance to your usual diet <Tyshawn Law - Last Filed: 10/02/17 17:17> Date of Encounter: 10/02/17 Hospital course: Mr. Cardoza is a 62 year old male - Time Spent with Patient Total time spent providing and/or coordinating discharge services: Date of admission: 10/01/17 13:52 Primary care physician: Hemant Salguero MD Consults: 10/01/17 15:06 Consult to Nutrition [CONS] Routine Comment: Consulting Provider: NUTRITION Reason for Dietary Consult: Other Other:: unplanned wt. loss 10/01/17 17:37 Consult to Driver/Sales Workers [CONS] Routine Reason for SW Consult: financial concerns for hospital bill, and medications at home - Constitutional Vitals: Temp Pulse Resp BP Pulse Ox 98.1 F 90 16 118/72 97 10/02/17 16:38 10/02/17 16:38 10/02/17 16:38 10/02/17 16:38 10/02/17 16:38 - Attending Attestation I personally interviewed and examined this patient. I agree with the findings, assessment, and plan of Dr. Espinoza, internal medicine marketing intern. Patient was doing well at discharge. Tolerating a full diet. We did work with social work and were able to obtain insulin for him as indicated above. Patient otherwise was doing well and deemed stable for discharge. 38 minutes was spent on discharge and coordination of care.
[2017-10-02] MEDS: *HR* HYDROcodone/Acet 5/325 mg TABLET PO PRN (19:18)
[2017-10-02] MEDS ORDERED: Famotidine 20 MG TABLET PO PRN (19:52)
[2017-10-03] MEDS: Insulin LISPRO 300 UNITS/3 ML VIAL SQ SCH ×3 (00:30→09:20)
[2017-10-03] MEDS: *HR* Heparin 5,000 UNIT/ML VIAL SQ SCH (05:55)
[2017-10-03 07:07] VITALS: BP 105/59
[2017-10-03] MEDS: Nicotine 21 MG PATCH.TD24 TD SCH (09:20)
[2017-10-03] MEDS: Insulin DETEMIR 100 UNIT/ML X5UNITS SQ SCH (09:20)
--- NOTE | 2017-10-03 16:39 | Event Note ---
Date of Encounter: 10/03/17 Time of Encounter: 10:00 Patient remains an additional night pending director social arranging his home insulin. He had no complaints. No abdominal pain. No nausea or vomiting. No fevers or chills. Glycemic control had improved. He did have an isolated low blood sugar which was treated with oral sugar. Patient otherwise was doing well and deemed stable for discharge. Vitals: Temperature 97.7 pulse 68 respiratory 15 blood pressure 105/59 O2 sat 97 % on room air In general no acute distress, awake and oriented 3, pleasant and conversant, thin, mildly malnourished in appearance Oropharynx moist Neck supple Lungs clear bilaterally Heart regular rate and rhythm without murmur Abdomen soft nontender nondistended with normoactive bowel sounds Extremities show no edema Neurological exam nonfocal Assessment and plan #1 DKA resolved, insulin-dependent diabetes mellitus type 1 Secondary to noncompliance with insulin therapy. Social work is involved and he now his insulin. He will continue to monitor his blood sugars. His A1c is markedly elevated at 14. He will need close follow-up. #2 chronic pancreatitis No evidence of flare #3 tobacco abuse Counseled and cessation urged, resources offered
== END 2017-10-03 11:27 | disposition home or self-care (01) | DRG 638 ==
LOC: EMEROO 07:28 → 2NNU 13:52 → 3ANU 10-02 12:06
PROVIDERS: ADMIT Family Medicine; ATTEND Internal Medicine